=== PATIENT | male | born 1975 | race Caucasian/White ===

== ENCOUNTER 2016-08-05 10:41 | Emergency (ER) | payer MEDICAID ==
[2016-08-05] MEDS ORDERED: KETOROLAC 60 MG/2 ML VIAL IM ONE (11:54)
[2016-08-05] MEDS ORDERED: CYCLOBENZAPRINE 10 MG TAB ONE (11:54)
== END 2016-08-05 12:32 | disposition home or self-care (01) ==
LOC: FASTR 10:41
DX: R05 Cough (principal); M94.0 Chondrocostal junction syndrome [Tietze]; S29.012A Strain of muscle and tendon of back wall of thorax, initial encounter; F17.210 Nicotine dependence, cigarettes, uncomplicated
CPT/HCPCS: 71020; 72072; 96372